=== PATIENT | female | born 1955 | race Caucasian/White ===

== ENCOUNTER 2016-11-18 10:01 | Emergency (ER) | payer OTHER ==
[~2016-11-18] VITALS: Ht 157.5 cm; Wt 48.1 kg
[~2016-11-18 10:01] MED LIST: BENADRYL25 M3 PO; GABAPENTIN600 M2 PO; IBUPROFEN600 M1 PO; NORCO 5-325 TA1 EACH PO; VENTOLIN HFA18 G2 INH
[2016-11-18] MEDS ORDERED: LEVOTHYROXINE50 MC3 (10:54)
[2016-11-18] MEDS ORDERED: NORCO 5-325 TA1 EACH PO (11:28)
== END 2016-11-18 12:23 ==
LOC: EDMED 10:01
PROC: 2W3QX1Z Immobilization of Right Lower Leg using Splint (ICD-10-PCS; principal; 2016-11-18)
DX: S92.351A Displaced fracture of fifth metatarsal bone, right foot, initial encounter for closed fracture (principal); J45.909 Unspecified asthma, uncomplicated; W20.8XXA Other cause of strike by thrown, projected or falling object, initial encounter; Y92.512 Supermarket, store or market as the place of occurrence of the external cause